=== PATIENT | male | born 1970 | race Caucasian/White ===

== ENCOUNTER 2024-09-15 00:47 | Inpatient (IN) | payer BC, OTHER ==
[2024-09-15] MEDS ORDERED: ONDANSETRON 4 MG/2 ML VIAL ONE (01:44)
[2024-09-15] MEDS ORDERED: NA CHLORIDE 0.9% 1,000 ML ONE ×3 (01:45→06:56)
[2024-09-15] MEDS ORDERED: FAMOTIDINE 20 MG/2 ML VIAL IV ONE (01:45)
[2024-09-15] MEDS ORDERED: MORPHINE 4 MG/ML SYR ONE (01:45)
[2024-09-15 01:59] LABS: Absolute Eosinophils 0.1 K/uL (0-0.5); Absolute Lymphocytes (CBC) 1.5 K/uL (0.7-4.9); Absolute Monocytes 1.4 K/uL (0.1-1.3); Absolute Neutrophil 14.1 K/uL (1.8-8.0); Basophils % 0.2 % (0-1.3); Eosinophils % 0.7 % (0-4.4); Hematocrit 41.3 % (39.6-49.0); Hemoglobin 13.8 g/dL (13.6-17.9); Lymphocytes % 8.9 % (15.3-44.8); MCH 30.1 pg (27.0-35.0); MCHC 33.4 g/dL (32.0-36.0); MCV 90.1 fL (80-100); MPV 9.7 fL (7.6-11.3); Monocytes % 8.4 % (3.3-12.3); Neutrophils % 81.8 % (41.7-73.7); Platelets 316 thou/uL (152-406); RBC Red Blood Cell Count 4.58 M/uL (4.33-5.43)
[2024-09-15 02:23] LABS: ALT/SGPT 69 U/L (16-61); AST/SGOT 50 U/L (15-37); Albumin 3.3 g/dL (3.4-5.0); Albumin/Globulin Ratio 0.8 (1.1-1.8); Alkaline Phosphatase 351 U/L (45-117); Anion Gap 9.8 mEq/L (5.0-15.0); BUN Blood Urea Nitrogen 15 mg/dL (7-18); Bicarbonate 25 mEq/L (21-32); Bilirubin Direct 0.6 mg/dL (0-0.2); Bilirubin Indirect, Calculated 0.8 mg/dL (0.2-0.8); Bilirubin Total 1.4 mg/dL (0.2-1.0); Globulin 4.3 g/dL (2.3-3.5); Glomerular Filtration Rate 78 ml/min (=/>90); Glucose Level 116 mg/dL (74-106); Magnesium 1.8 mg/dL (1.6-2.4); Potassium 3.8 mEq/L (3.5-5.1); Protein, Total 7.6 g/dL (6.4-8.2); Sodium Level 137 mEq/L (136-145); Troponin High Sensitivity 9.1 pg/mL (<58.9)
[2024-09-15 02:29] LABS: Lipase > 5000 U/L (13-75)
[2024-09-15 03:35] LABS: PT Prothrombin Time 11.7 SECONDS (9.4-12.5); PTT, Activated Partial Thromb 30.1 SECONDS (24.3-36.9); Protime INR 1.12
[2024-09-15] MEDS ORDERED: PIPERACIL/TAZO 4.5 GM VIAL IV ONE (03:35)
[2024-09-15] MEDS ORDERED: NA CHLORIDE 0.9% 100 ML ONE (03:36)
[2024-09-15 04:11] LABS: Specific Gravity 1.013 (1.005-1.030); Sqamous Epithelial None Seen /HPF (None Seen); Urine Bacteria None Seen /HPF (<20); Urine Bilirubin NEGATIVE (Negative); Urine Blood Negative (Negative); Urine Clarity Clear (Clear); Urine Color Light-Yellow (Yellow); Urine Culture Reflex Order NOT NEEDED; Urine Glucose NEGATIVE (Negative); Urine Ketones NEGATIVE (Negative); Urine Microscopic Reflex YN ORDER UMIC; Urine Nitrite NEGATIVE (Negative); Urine Protein NEGATIVE (Negative); Urine RBC <5 /HPF (None Seen); Urine Urobilinogen Normal (Normal); Urine WBC <5 /HPF (<5); Urine pH 5.5 (5.0-7.0)
--- NOTE | 2024-09-15 04:28 | RAD REPORT ---
EXAM: XR Chest, 1 View CLINICAL HISTORY: The patient is 54 years old and is Male; epigastric/upper abdomen pain TECHNIQUE: Frontal view of the chest. COMPARISON: No relevant prior studies available. FINDINGS: Lungs: Unremarkable. No consolidation. Pleural space: Unremarkable. No pneumothorax. Heart: Unremarkable. Mediastinum: Unremarkable. Normal mediastinal contour. Bones/joints: No acute findings. Upper abdomen: Gallbladder is surgically absent. * A single impression for all exams can be found at the end of this report EXAM: CT Abdomen and Pelvis With Intravenous Contrast CLINICAL HISTORY: The patient is 54 years old and is Male; epigastric/upper abdomen pain TECHNIQUE: Axial computed tomography images of the abdomen and pelvis with intravenous contrast. Sagittal and coronal reformatted images were created and reviewed. This CT exam was performed using one or more of the following dose reduction techniques: automated exposure control, adjustmen t of the mA and/or kV according to patient size, and/or use of iterative reconstruction technique. COMPARISON: No relevant prior studies available. FINDINGS: Lung bases: Unremarkable. No mass. No consolidation. ABDOMEN: Liver: Unremarkable. No mass. Gallbladder and bile ducts: Gallbladder is surgically absent. No ductal dilation. Pancreas: Peripancreatic stranding suggestive of acute pancreatitis. No ductal dilation. Spleen: Unremarkable. No splenomegaly. Adrenals: Unremarkable. No mass. Kidneys and ureters: Unremarkable. No solid mass. No hydronephrosis. Stomach and bowel: Unremarkable. No obstruction. No mucosal thickening. PELVIS: Appendix: No findings to suggest acute appendicitis. Bladder: Unremarkable. Reproductive: Unremarkable as visualized. ABDOMEN and PELVIS: Intraperitoneal space: Unremarkable. No free air. No significant fluid collection. Bones/joints: Disc space narrowing with degenerative endplate changes in the spine. No acute fracture. No dislocation. Soft tissues: Unremarkable. Vasculature: Unremarkable. No abdominal aortic aneurysm. Lymph nodes: Unremarkable. No enlarged lymph nodes. * A single impression for all exams can be found at the end of this report IMPRESSION: XR Chest, 1 View: No acute findings in the chest. CT Abdomen and Pelvis With Intravenous Contrast: Peripancreatic stranding suggestive of acute pancreatitis. Electronically signed by: Omer Vicente MD 09/15/2024 04:24 AM [facility] 8 Due to temporary technical issues with the PACS/[employer] reporting system, reports are being nael d by the in-house radiologist without review as a courtesy to ensure prompt reporting the interpreting radiologist is fully responsible for the content of the report. Transcribed Date/Time: 09/15/2024 4:27 AM
--- NOTE | 2024-09-15 04:35 | RAD REPORT ---
EXAM: XR Chest, 1 View CLINICAL HISTORY: The patient is 54 years old and is Male; epigastric/upper abdomen pain TECHNIQUE: Frontal view of the chest. COMPARISON: No relevant prior studies available. FINDINGS: Lungs: Unremarkable. No consolidation. Pleural space: Unremarkable. No pneumothorax. Heart: Unremarkable. Mediastinum: Unremarkable. Normal mediastinal contour. Bones/joints: No acute findings. Upper abdomen: Gallbladder is surgically absent. * A single impression for all exams can be found at the end of this report EXAM: CT Abdomen and Pelvis With Intravenous Contrast CLINICAL HISTORY: The patient is 54 years old and is Male; epigastric/upper abdomen pain TECHNIQUE: Axial computed tomography images of the abdomen and pelvis with intravenous contrast. Sagittal and coronal reformatted images were created and reviewed. This CT exam was performed using one or more of the following dose reduction techniques: automated exposure control, adjustmen t of the mA and/or kV according to patient size, and/or use of iterative reconstruction technique. COMPARISON: No relevant prior studies available. FINDINGS: Lung bases: Unremarkable. No mass. No consolidation. ABDOMEN: Liver: Unremarkable. No mass. Gallbladder and bile ducts: Gallbladder is surgically absent. No ductal dilation. Pancreas: Peripancreatic stranding suggestive of acute pancreatitis. No ductal dilation. Spleen: Unremarkable. No splenomegaly. Adrenals: Unremarkable. No mass. Kidneys and ureters: Unremarkable. No solid mass. No hydronephrosis. Stomach and bowel: Unremarkable. No obstruction. No mucosal thickening. PELVIS: Appendix: No findings to suggest acute appendicitis. Bladder: Unremarkable. Reproductive: Unremarkable as visualized. ABDOMEN and PELVIS: Intraperitoneal space: Unremarkable. No free air. No significant fluid collection. Bones/joints: Disc space narrowing with degenerative endplate changes in the spine. No acute fracture. No dislocation. Soft tissues: Unremarkable. Vasculature: Unremarkable. No abdominal aortic aneurysm. Lymph nodes: Unremarkable. No enlarged lymph nodes. * A single impression for all exams can be found at the end of this report IMPRESSION: XR Chest, 1 View: No acute findings in the chest. CT Abdomen and Pelvis With Intravenous Contrast: Peripancreatic stranding suggestive of acute pancreatitis. Electronically signed by: Omer Vicente MD 09/15/2024 04:[address] [facility] 8 Due to temporary technical issues with the [email or web address] reporting system, reports are being nael d by the in-house radiologist without review as a courtesy to ensure prompt reporting the interpreting radiologist is fully responsible for the content of the report. Transcribed Date/Time: 09/15/2024 4:35 AM
[2024-09-15] MEDS ORDERED: HYDROMORPHONE HCL 1 MG/ML INJ ONE (04:51)
--- NOTE | 2024-09-15 04:55 | EDPHYS ---
Physician Documentation [facility] Name: Carmine Muñiz III Age: 54 yrs Sex: Male : 1970 Arrival Date: 09/15/2024 Time: 00:47 Bed 18 Private MD: ED Physician Toño Titus HPI: 09/15 01:19 This 54 yrs old Male presents to ER via Unassigned with complaints of Abdominal Pain. cp 01:19 The patient presents with abdominal pain in the epigastric area, in the upper abdomen. cp Onset: The symptoms/episode began/occurred today, about 1700 after leaving work. The symptoms do not radiate. Associated signs and symptoms: Pertinent negatives: chest pain, constipation, diarrhea, dysuria, fever, shortness of breath, vomiting. The symptoms are described as waxing/waning, pressure. Severity of pain: in the emergency department the pain is actually worse moderately. Historical: - Allergies: 01:02 shrimp; ha1 - PMHx: 01:02 Hypertensive disorder; ha1 - PSHx: 01:02 Appendectomy; Cholecystectomy; ha1 - Immunization history:: Adult Immunizations up to date. - Infectious Disease History:: Denies. - Social history:: Smoking status: Patient denies any tobacco usage or history of. ROS: 01:20 Eyes: Negative for injury, pain, redness, and discharge, cp 01:20 Constitutional: Negative for body aches, chills, fever, poor PO intake, 01:20 ENT: Negative for drainage from ear(s), ear pain, sore throat, difficulty swallowing, difficulty handling secretions, :20 Cardiovascular: Negative for chest pain, edema, palpitations, 01:20 Respiratory: Negative for cough, shortness of breath, wheezing, 01:20 Abdomen/GI: Positive for abdominal pain, of the epigastric area and upper abdomen, Negative for vomiting, diarrhea, constipation, 01:20 Back: Negative for pain at rest, pain with movement, 01:20 : Negative for urinary symptoms, 01:20 Neuro: Negative for altered mental status, headache, weakness, 01:20 All other systems are negative, Exam: : ECG was reviewed by the Attending Physician. cp 01:25 Constitutional: The patient appears in no acute distress, alert, awake, cp non-diaphoretic, non-toxic, well developed, well nourished, obese, uncomfortable, 01:25 Head/Face: Normocephalic, atraumatic. cp 01:25 Eyes: Periorbital structures: appear normal, Pupils: equal, round, and reactive to light and accomodation, Extraocular movements: intact throughout, Conjunctiva: normal, no exudate, no injection, Sclera: no appreciated abnormality, Lids and lashes: appear normal, bilaterally, :25 ENT: External ear(s): are unremarkable, Nose: is normal, Mouth: Lips: moist, Oral mucosa: moist, Posterior pharynx: Airway: no evidence of obstruction, patent, :25 Chest/axilla: Inspection: normal, :25 Cardiovascular: Rate: normal, Rhythm: regular, Edema: is not appreciated, JVD: is not appreciated, :25 Respiratory: the patient does not display signs of respiratory distress, Respirations: labored breathing, is not present, intercostal retractions, are absent, shallow respirations, are not present, Breath sounds: are clear throughout, no decreased breath sounds, stridor, is not appreciated, wheezing: is not appreciated, :25 Abdomen/GI: Inspection: obese Bowel sounds: active, all quadrants, Palpation: soft, in all quadrants, moderate abdominal tenderness, in the epigastric area and right upper quadrant, rebound tenderness, is not appreciated, voluntary guarding, is elicited in the epigastric area and right upper quadrant, involuntary guarding, is not appreciated, :25 Back: CVA tenderness, is absent, :25 Neuro: Orientation: to person, place \T\ time. Mentation: is normal, Motor: moves all fours, strength is normal, Sensation: is normal, Vital Signs: 01:02 BP 149 / 78; Pulse 81; Resp 17 S; Temp 98.1(O); Pulse Ox 97% on R/A; Weight 129.27 kg; ha1 Height 6 ft. 2 in. ; 02:00 BP 123 / 77; Pulse 73; Resp 17; Pulse Ox 96% on R/A; dd2 02:30 BP 119 / 70; Pulse 67; Resp 16; Pulse Ox 95% ; dd2 05:07 BP 115 / 64; Pulse 65; Resp 18; Pulse Ox 95% ; cp4 11:09 BP 123 / 76; Pulse 70; Resp 18; Pulse Ox 100% ; kj2 01:02 Body Mass Index 36.59 (129.27 kg, 187.96 cm) ha1 [place] Coma Score: 01:20 Eye Response: spontaneous(4). Motor Response: obeys commands(6). Verbal Response: dd2 oriented(5). Total: 15. MDM: 01:03 Medical Screening Exam initiated 02:00 Differential diagnosis: gastritis, non-specific abd pain, pancreatitis, Peptic Ulcer cp Disease, Perf. Duodenal Ulcer, Perf. Gastric Ulcer, Ureterolithiasis, urinary tract infection, choledocholithiasis. 04:45 Data reviewed: vital signs, nurses notes, lab test result(s), EKG, radiologic studies, cp CT scan, plain films. 04:45 I considered the following discharge prescriptions or medication management in the emergency department Medications were administered in the Emergency Department. See MAR. Independent interpretation of the following test(s) in the Emergency Department EKG: See my EKG interpretation above. 04:50 Management of patient was discussed with the following: Hospitalist: DR Menard who will see patient in ED. 09/15 01:23 Order name: Basic Metabolic Panel; Complete Time: 02:30 09/15 02:31 Interpretation: Normal except: GLUC 116; GFR 78. 09/15 01:23 Order name: CBC with Diff; Complete Time: 02:01 09/15 02:01 Interpretation: Normal except: WBC 17.20; CHRISTOPHER% 81.8; LYM% 8.9; NEUT A 14.1; MNA 1.4. 09/15 01:23 Order name: LFT's; Complete Time: 02:30 09/15 02:31 Interpretation: Normal except: AST 50; ALT 69; ALK 351; BILIT 1.4; BILID 0.6; ALB 3.3; cp GLOB 4.3; A/G 0.8. 09/15 01:23 Order name: Magnesium; Complete Time: 02:30 09/15 02:31 Interpretation: Reviewed. 09/15 01:23 Order name: Troponin HS; Complete Time: 02:30 09/15 02:31 Interpretation: Reviewed. 09/15 01:23 Order name: Lipase; Complete Time: 02:30 09/15 02:31 Interpretation: Abnormal: LIP > 5000. 09/15 02:42 Order name: Blood Culture Adult (2) cp 09/15 02:42 Order name: Lactate w/ 2H reflex if indic.; Complete Time: 04:12 cp 09/15 02:42 Order name: Protime (+inr); Complete Time: 04:12 cp 09/15 02:42 Order name: Ptt, Activated; Complete Time: 04:12 cp 09/15 02:42 Order name: Urinalysis w/ reflexes; Complete Time: 04:12 cp 09/15 05:25 Order name: CBC with Automated Diff EDMS 09/15 05:25 Order name: CBC with Automated Diff EDMS 09/15 05:25 Order name: Comprehensive Metabolic Panel [facility] 09/15 05:25 Order name: Comprehensive Metabolic Panel [facility] 09/15 05:25 Order name: Lipase [facility]MI 09/15 05:25 Order name: Lipase [facility] 09/15 05:25 Order name: Lipase [facility] 09/15 01:23 Order name: XRAY Chest (1 view) 09/15 01:24 Order name: CT Abd/Pelvis - IV Contrast Only 09/15 05:25 Order name: Cholangiogram [facility] 09/15 01:23 Order name: EKG; Complete Time: 01:24 cp 09/15 01:23 Order name: Cardiac monitoring; Complete Time: 01: cp 09/15 01:23 Order name: EKG - Nurse/Tech; Complete Time: 01: cp 09/15 01:23 Order name: IV Saline Lock; Complete Time: 01:41 cp 09/15 01:23 Order name: Labs collected and sent; Complete Time: 01: cp 09/15 01:23 Order name: O2 Per Protocol; Complete Time: 01: cp 09/15 01:23 Order name: O2 Sat Monitoring; Complete Time: 01: cp 09/15 02:42 Order name: IV Saline Lock - Large Bore; Complete Time: 02:46 cp 09/15 02:42 Order name: Vital Signs; Complete Time: 02:46 cp EC:20 Rate is 78 beats/min. Rhythm is regular. KS interval is normal. QRS interval is normal. cp QT interval is normal. T waves are Inverted in lead aVR. Interpreted by me. Reviewed by me. Administered Medications: 01:55 Drug: Ondansetron IVP 4 mg IVP once; over 2 minutes Route: IVP; Site: right antecubital;dd2 02:10 Follow up: Response: No adverse reaction dd2 01:55 Drug: Famotidine IVP 20 mg IVP once; dilute with 10 mL 0.9% NaCl; give over 2 minutes dd2 Route: IVP; Site: right antecubital; 02:10 Follow up: Response: No adverse reaction dd2 01:55 Drug: morphine IVP or IV 4 mg IVP once over 4 mins Route: IVP; Infused Over: 4 mins; dd2 Site: right antecubital; 02:10 Follow up: Response: No adverse reaction dd2 01:55 Drug: NS 0.9% IV 1000 ml IV at 1000 ml once; to be given as a bolus over 60 minutes dd2 Route: IV; Rate: 1000 ml; Site: right antecubital; 02:10 Follow up: Response: No adverse reaction dd2 03:09 CANCELLED (Physician Discretion): piperacillin-tazobactam4.5 grams IVPB once over 60 cp mins; (mix in 100 mL NS) 03:42 Drug: NS 0.9% IV 1000 ml IV at 1000 ml once; to be given as a bolus over 60 minutes dd2 Route: IV; Rate: 1000 ml; Site: right antecubital; 04:47 Follow up: Response: No adverse reaction; IV Status: Completed infusion cp4 03:42 Drug: Piperacillin-Tazobactam IVPB 4.5 grams IVPB once over 60 mins; (mix in 100 mL NS) dd2 Route: IVPB; Infused Over: 60 mins; Site: right antecubital; 04:47 Follow up: Response: No adverse reaction; IV Status: Completed infusion cp4 04:58 Drug: HYDROmorphone IVP 1 mg IVP once Route: IVP; Site: right antecubital; cp4 11:08 Follow up: Response: No adverse reaction kj2 Disposition Summary: 09/15/24 04:55 Hospitalization Ordered Notes: Hospitalization Status: Inpatient Admission cp Provider: Joe Menard cp Location: Telemetry/MedSurg (Inpatient) cp Condition: Fair cp Problem: new cp Symptoms: have improved cp Bed/Room Type: Standard cp Room Assignment: 430(09/15/24 14:21) eb Diagnosis - Other acute pancreatitis without necrosis or infection cp Forms: - Medication Reconciliation Form cp - SBAR form cp - Leadership Thank You Letter cp Addendum: 09/18/2024 14:16 Co-signature as Attending Physician, Toño Titus MD I agree with the assessment and c bullock plan of care. Signatures: Dispatcher [employer] EDMS Toño Titus MD MD cha Page, Corey, PA PA cp Clark, Almaz eb Sridevi Ayon, RN RN ha1 Cecy Díaz cp4 RAMIRO PECK RN RN dd2 Stefanie Sal RN kj2 Corrections: (The following items were deleted from the chart) 09/15 01:24 01:24 BASIC METABOLIC PANEL+C.LAB.BRZ ordered. EDMS EDMS 01:24 01:24 CBC+H.LAB.BRZ ordered. EDMS EDMS 01:24 01:24 HEPATIC FUNCTION+C.LAB.BRZ ordered. EDMS EDMS 01:24 01:24 MAGNESIUM+C.LAB.BRZ ordered. EDMS EDMS 01:24 01:24 Troponin High Sensitivity+C.LAB.BRZ ordered. EDMS EDMS 01:24 01:24 LIPASE+C.LAB.BRZ ordered. EDMS EDMS 02:43 02:43 BLOOD CULTURE*+BA.LAB.BRZ ordered. EDMS EDMS 02:43 02:43 LACTATE+C.LAB.BRZ ordered. EDMS EDMS 02:43 02:43 PROTIME (+INR)+COAG.LAB.BRZ ordered. EDMS EDMS 02:43 02:43 PTT, ACTIVATED+COAG.LAB.BRZ ordered. EDMS EDMS 02:43 02:43 Urinalysis+U.LAB.BRZ ordered. EDMS EDMS 03:09 03:09 Piperacillin-Tazobactam IVPB 4.5 grams IVPB once over 60 mins; (mix in 100 mL NS) cp ordered. cp 03:30 02:42 Accucheck ordered. cp dd2 14:21 04:55 cp eb
--- NOTE | 2024-09-15 04:55 | ER ---
Nurse's Notes [facility] Name: Carmine Muñiz III Age: 54 yrs Sex: Male : 1970 Arrival Date: 09/15/2024 Time: 00:47 Bed 18 Private MD: Diagnosis: Other acute pancreatitis without necrosis or infection Presentation: 09/15 01:02 Chief complaint: Patient states: mid epigastric pain since this afternoon. ha1 01:02 Coronavirus screen: Client denies travel out of the [place] in the last 14 days. Ebola ha1 Screen: No symptoms or risks identified at this time. Initial Sepsis Screen: Does the patient meet any 2 criteria? No. Patient's initial sepsis screen is negative. Does the patient have a suspected source of infection? No. Patient's initial sepsis screen is negative. Risk Assessment: Do you want to hurt yourself or someone else? Patient reports no desire to harm self or others. Onset of symptoms was September 15, 2024. 01:02 Method Of Arrival: Ambulatory ha1 01:02 Acuity: LAVINIA 3 ha1 Triage Assessment: 01:02 General: Appears uncomfortable, Behavior is cooperative. Pain: Complains of pain in ha1 epigastric area Pain does not radiate. Pain currently is 8 out of 10 on a pain scale. Quality of pain is described as burning, pressure. Neuro: Level of Consciousness is awake, alert, obeys commands, Oriented to person, place, time, situation. Cardiovascular: Capillary refill < 3 seconds Patient's skin is warm and dry. Respiratory: Airway is patent Respiratory effort is even, unlabored, Respiratory pattern is regular, symmetrical. GI: Abdomen is round non-distended. : No signs and/or symptoms were reported regarding the genitourinary system. Derm: Skin is pink, warm \T\ dry. Musculoskeletal: Circulation, motion, and sensation intact. Range of motion: intact in all extremities. Historical: - Allergies: 01:02 shrimp; ha1 - PMHx: 01:02 Hypertensive disorder; ha1 - PSHx: 01:02 Appendectomy; Cholecystectomy; ha1 - Immunization history:: Adult Immunizations up to date. - Infectious Disease History:: Denies. - Social history:: Smoking status: Patient denies any tobacco usage or history of. Screenin: [facility] ED Fall Risk Assessment (Adult) History of falling in the last 3 months, dd2 including since admission No falls in past 3 months (0 pts) Confusion or Disorientation No (0 pts) Intoxicated or Sedated No (0 pts) Impaired Gait No (0 pts) Mobility Assist Device Used No (0 pt) Altered Elimination No (0 pt) Score/Fall Risk Level 0 - 2 = Low Risk Oriented to surroundings, Maintained a safe environment, Educated pt \T\ family on fall prevention, incl call for assistance when getting out of bed, Assessed \T\ reinforced patient's understanding of fall precautions, Hourly rounding (assess needs \T\ fall precautionary measures) done. Abuse screen: Denies threats or abuse. Nutritional screening: No deficits noted. Tuberculosis screening: No symptoms or risk factors identified. Assessment: :20 General: Appears in no apparent distress. uncomfortable, Behavior is calm, cooperative, dd2 appropriate for age. Pain: Complains of pain in epigastric area Pain currently is 8 out of 10 on a pain scale. Pain began 1700 09/14/2024. Neuro: No deficits noted. Pulido Agitation-Sedation Scale (RASS): 0 - Alert and Calm Level of Consciousness is awake, alert, obeys commands, Oriented to person, place, time, situation, Appropriate for age. Cardiovascular: Denies chest pain, Patient's skin is warm and dry. Rhythm is sinus rhythm. Respiratory: No deficits noted. Airway is patent Respiratory effort is even, unlabored, Respiratory pattern is regular, symmetrical. GI: Abdomen is non-distended, obese, Bowel sounds present X 4 quads. Abd is soft and non tender Reports epigastric pain. : No deficits noted. No signs and/or symptoms were reported regarding the genitourinary system. EENT: No deficits noted. No signs and/or symptoms were reported regarding the EENT system. Derm: No deficits noted. No signs and/or symptoms reported regarding the dermatologic system. Musculoskeletal: No deficits noted. No signs and/or symptoms reported regarding the musculoskeletal system. Circulation, motion, and sensation intact. Range of motion: intact in all extremities. 07:15 Reassessment: SEE [employer] FOR CONTINUED DOCUMENTATION. db Vital Signs: 01:02 BP 149 / 78; Pulse 81; Resp 17 S; Temp 98.1(O); Pulse Ox 97% on R/A; Weight 129.27 kg; ha1 Height 6 ft. 2 in. ; 02:00 BP 123 / 77; Pulse 73; Resp 17; Pulse Ox 96% on R/A; dd2 02:30 BP 119 / 70; Pulse 67; Resp 16; Pulse Ox 95% ; dd2 05:07 BP 115 / 64; Pulse 65; Resp 18; Pulse Ox 95% ; cp4 11:09 BP 123 / 76; Pulse 70; Resp 18; Pulse Ox 100% ; kj2 01:02 Body Mass Index 36.59 (129.27 kg, 187.96 cm) ha1 [place] Coma Score: 01:20 Eye Response: spontaneous(4). Motor Response: obeys commands(6). Verbal Response: dd2 oriented(5). Total: 15. ED Course: 00:49 Patient arrived in ED. jj6 00:52 Toño Camargo PA is PHCP. cp 00:53 Toño Titus MD is Attending Physician. cp 01:18 RAMIRO PECK, [place] is Primary Nurse. dd2 01:18 EKG done, by ED staff, reviewed by Toño PARISI. mm11 01:20 Inserted saline lock: 20 gauge in right antecubital area, using aseptic technique. dd2 Blood collected. Flushed with 10 mL NS. 01:20 No provider procedures requiring assistance completed. Patient maintains SpO2 dd2 saturation greater than 95% on room air. 01:20 Patient has correct armband on for positive identification. Bed in low position. Call dd2 light in reach. Side rails up X2. Client placed on continuous cardiac and pulse oximetry monitoring. NIBP monitoring applied. manager monitoring on. Door closed. Noise minimized. Warm blanket given. Pillow given. Verbal reassurance given. 01:22 Triage completed. ha1 01:41 XRAY Chest (1 view) Sent. dd2 01:54 XRAY Chest (1 view) In Process Unspecified. EDMS 02:50 CT Abd/Pelvis - IV Contrast Only In Process Unspecified. EDMS 04:54 Joe Menard MD is Hospitalizing Provider. cp 15:13 Patient admitted, IV remains in place. db 15:13 Provided Education on: ADMISSION. db Administered Medications: 01:55 Drug: Ondansetron IVP 4 mg IVP once; over 2 minutes Route: IVP; Site: right antecubital;dd2 02:10 Follow up: Response: No adverse reaction dd2 01:55 Drug: Famotidine IVP 20 mg IVP once; dilute with 10 mL 0.9% NaCl; give over 2 minutes dd2 Route: IVP; Site: right antecubital; 02:10 Follow up: Response: No adverse reaction dd2 01:55 Drug: morphine IVP or IV 4 mg IVP once over 4 mins Route: IVP; Infused Over: 4 mins; dd2 Site: right antecubital; 02:10 Follow up: Response: No adverse reaction dd2 01:55 Drug: NS 0.9% IV 1000 ml IV at 1000 ml once; to be given as a bolus over 60 minutes dd2 Route: IV; Rate: 1000 ml; Site: right antecubital; 02:10 Follow up: Response: No adverse reaction dd2 03:09 CANCELLED (Physician Discretion): piperacillin-tazobactam4.5 grams IVPB once over 60 cp mins; (mix in 100 mL NS) 03:42 Drug: NS 0.9% IV 1000 ml IV at 1000 ml once; to be given as a bolus over 60 minutes dd2 Route: IV; Rate: 1000 ml; Site: right antecubital; 04:47 Follow up: Response: No adverse reaction; IV Status: Completed infusion cp4 03:42 Drug: Piperacillin-Tazobactam IVPB 4.5 grams IVPB once over 60 mins; (mix in 100 mL NS) dd2 Route: IVPB; Infused Over: 60 mins; Site: right antecubital; 04:47 Follow up: Response: No adverse reaction; IV Status: Completed infusion cp4 04:58 Drug: HYDROmorphone IVP 1 mg IVP once Route: IVP; Site: right antecubital; cp4 11:08 Follow up: Response: No adverse reaction kj2 Medication: 01:20 VIS not applicable for this client. dd2 Outcome: 04:55 Decision to Hospitalize by Provider. cp 15:13 Admitted to Med/surg db 15:13 Condition: stable 15:13 Instructed on the need for admit, 15:14 Patient left the ED. db Signatures: Dispatcher [employer] EDAZ Toño Camargo PA PA cp Jeffries, Jennifer jj6 Sridevi Ayon RN RN ha1 Ami Irby, RN RN db Cecy Díaz cp4 Stefanie Sal RN RN kj2 RAMIRO PECK RN RN dd2 alon bauer mm11
[2024-09-15] MEDS ORDERED: ONDANSETRON 4 MG/2 ML VIAL IV PRN (05:20)
[2024-09-15] MEDS ORDERED: MORPHINE 4 MG/ML SYR IV PRN (05:20)
--- NOTE | 2024-09-15 05:25 | P.HP ---
Certification for Inpatient With expected LOS: >2 Midnights Practitioner: I am a practitioner with admitting privileges, knowledge of patient current condition, hospital course, and medical plan of care. Services: Services provided to patient in accordance with Admission requirements found in Title 42 Section 412.3 of the Code of Federal Regulations Patient History Date of Service: 09/15/24 Reason for admission: Acute pancreatitis History of Present Illness: Patient is 54 years of age started having acute epigastric pain started at 5 PM yesterday became progressively worse ended up here in the emergency room was diagnosed with acute pancreatitis patient has had his gallbladder removed apparently had a similar pain when they did an ERCP any nausea vomiting diarrhea denies alcohol abuse Allergies shrimp Allergy (Verified 09/15/24 05:26) Anaphylaxis - Past Medical/Surgical History -: Hypertension -: Autoimmune liver disease -: Appendicectomy -: Cholecystectomy - Social History Smoking Status: Never smoker Review of Systems 10-point ROS is otherwise unremarkable Physical Examination - Vital Signs Temperature: 97.4 F Blood Pressure: 124/71 Pulse: 85 Respirations: 14 Pulse Ox (%): 100 - Physical Exam General: Alert, In no apparent distress, Oriented x3 HEENT: Atraumatic Neck: Supple Respiratory: Clear to auscultation bilaterally Cardiovascular: No edema, Regular rate/rhythm Gastrointestinal: Normal bowel sounds, No tenderness, No masses, No rebound, Tenderness (Minimal epigastric tenderness no rebound) Musculoskeletal: No clubbing, No swelling - Studies Laboratory Data (last 24 hrs) 09/15/24 09/15/24 09/15/24 03:06 01:29 01:29 WBC 17.20 H Hgb 13.8 Hct 41.3 Plt Count 316 PT 11.7 INR 1.12 APTT 30.1 Sodium 137 Potassium 3.8 BUN 15 Creatinine 1.13 Glucose 116 H Magnesium 1.8 Total Bilirubin 1.4 H AST 50 H ALT 69 H Alkaline Phosphatase 351 H Lipase > 5000 H Assessment and Plan - Problems (Diagnosis) (1) Acute pancreatitis Current Visit: Yes Status: Acute Plan: Patient is 54 years of age admitted with acute pancreatitis postcholecystectomy autoimmune liver disease lipase level is over 5000 CT scan consistent with pancreatitis patient's white count is elevated abnormal LFTs CT scan reviewed labs reviewed admit n.p.o. IV fluids pain medication MRCP triglyceride level Qualifiers: Acute pancreatitis complication: unspecified - Advance Directives Does patient have a Living Will: No Does patient have a Durable POA for Healthcare: No
[2024-09-15 05:50] VITALS: BMI 36.6
[2024-09-15] MEDS: NA CHLORIDE 0.9% 1,000 ML IV SCH (05:51)
[2024-09-15] MEDS: FLU (Fluarix Triv) TS24-25(6MOS UP)/PF 45 MCG/0.5 ML Syringe IM ONE (08:15)
--- NOTE | 2024-09-15 18:46 | P.PN ---
Date of Service: 09/15/24 Patient seen and examined. He reports his abdominal pain is better He has had no nausea or vomited. He reports history of autoimmune liver disease, specifically sclerosing cholangitis. Autoimmune acute pancreatitis highly possible. Plan: Supportive measures with IV hydration. Clear liquid diet Serial abdominal examination Serial lipase Triglyceride level is pending.
[2024-09-16 07:27] LABS: Absolute Eosinophils 0.4 K/uL (0-0.5); Absolute Lymphocytes (CBC) 2.2 K/uL (0.7-4.9); Absolute Neutrophil 6.4 K/uL (1.8-8.0); Basophils % 0.4 % (0-1.3); Eosinophils % 3.7 % (0-4.4); Hematocrit 37.7 % (39.6-49.0); Hemoglobin 13.2 g/dL (13.6-17.9); Lymphocytes % 21.7 % (15.3-44.8); MCH 31.6 pg (27.0-35.0); MCHC 35.1 g/dL (32.0-36.0); MCV 90.3 fL (80-100); MPV 9.6 fL (7.6-11.3); Monocytes % 10.4 % (3.3-12.3); Neutrophils % 63.8 % (41.7-73.7); Nucleated Red Blood Cells % 0.1 % (0-0); Platelets 237 thou/uL (152-406); RBC Red Blood Cell Count 4.18 M/uL (4.33-5.43); Red Cell Distribution Width 13.8 % (12.1-15.2)
[2024-09-16 07:51] LABS: Albumin 3.1 g/dL (3.4-5.0); Albumin/Globulin Ratio 0.8 (1.1-1.8); Anion Gap 8.4 mEq/L (5.0-15.0); Bilirubin Total 1.5 mg/dL (0.2-1.0); Globulin 3.9 g/dL (2.3-3.5); Potassium 4.4 mEq/L (3.5-5.1)
[2024-09-16] MEDS: VALSARTAN 160 MG TAB PO SCH (15:50)
--- NOTE | 2024-09-16 18:23 | P.PN ---
Subjective Date of Service: 09/16/24 Chief Complaint: Acute pancreatitis Patient states he feels much better today. He states that his abdominal pain is much better. He denies any nausea. No vomiting. No recorded fever. Physical Examination - Vital Signs Temperature: 98.3 F Blood Pressure: 127/63 Pulse: 65 Respirations: 20 Pulse Ox (%): 97 - Studies Microbiology Data (last 24 hrs): 09/15/24 04:35 Blood - Blood Anaerobic Blood Culture - Final 09/15/24 03:06 Blood - Blood Anaerobic Blood Culture - Final Assessment And Plan - Plan Physical examination General: Alert and oriented x3, NAD, HEENT: Anicteric sclera Neck: Supple, no elevated JVD Heart: Heart sounds 1 and 2 normal, regular rhythm, normal rate, no pedal edema Lungs: Clear to auscultation bilaterally, adequate breath sounds bilaterally, no rhonchi or crackles. Abdomen: Soft, nondistended, nontender, normal bowel sounds. Extremities: No tenderness, no deformity Skin: Normal skin turgor, no rash, no nodules or ulcers. Neuro: No focal motor deficit. Normal speech. Psychiatry: Normal mood, no agitation. Diagnosis Acute pancreatitis History of autoimmune hepatitis Patient stated he has been diagnosed with sclerosing cholangitis. He has no gallbladder and denies alcohol intake. 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 Lipase level significantly improved from yesterday. Patient's symptoms improved. Leukocytosis likely stress related-resolved. Overall he is responding to supportive measures with IV hydration and clear liquid diet. Continue to monitor lipase level. Analgesics as needed. Autoimmune hepatitis Primary sclerosing cholangitis Patient follows with fitter hand Chan Christensen. Patient has elevated ALP and mildly elevated bilirubin. AST/ALT are within normal limits. He is not on any bile sequestrant medication. Follow-up as outpatient. Chronic pain syndrome Hold NSAIDs given risk factors for acute pancreatitis. Essential hypertension Continue home dose losartan. DVT prophylaxis: Lovenox Advanced directive: Full code
[2024-09-16 22:16] VITALS: O2SAT 96
[2024-09-17 06:56] LABS: Albumin 2.9 g/dL (3.4-5.0); Albumin/Globulin Ratio 0.8 (1.1-1.8); Anion Gap 9.2 mEq/L (5.0-15.0); Globulin 3.7 g/dL (2.3-3.5); Potassium 4.2 mEq/L (3.5-5.1); Protein, Total 6.6 g/dL (6.4-8.2)
[2024-09-17 09:05] VITALS: TEMP 97.9
[2024-09-17 12:37] VITALS: BP 119/79
--- NOTE | 2024-09-17 14:19 | P.DS ---
Admission Date: 09/15/24 Discharge Date: 09/17/24 Disposition: ROUTINE DISCHARGE Discharge Condition: FAIR Reason for Admission: Acute pancreatitis Brief History of Present Illness: Patient is 54 years of age started having acute epigastric pain started at 5 PM yesterday became progressively worse ended up here in the emergency room was diagnosed with acute pancreatitis patient has had his gallbladder removed apparently had a similar pain when they did an ERCP any nausea vomiting diarrhea denies alcohol abuse Hospital Course: Patient admitted to the medical floor and the following medical problems addr essed Acute pancreatitis History of autoimmune hepatitis Patient stated he has been diagnosed with sclerosing cholangitis. He has no gallbladder and denies alcohol intake. 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 Lipase level significantly improved from yesterday. Patient's symptoms improved. Leukocytosis likely stress related-resolved. Overall he is responded well to supportive measures with IV hydration and clear liquid diet. Lipase level improved significantly and almost resolved. Patient tolerated diet advancement. He is deemed stable for discharge. Autoimmune hepatitis Primary sclerosing cholangitis Patient follows with training development specialist Chan Christensen. Patient has elevated ALP and mildly elevated bilirubin. AST/ALT are within normal limits. He is not on any bile sequestrant medication. Follow-up as outpatient. Chronic pain syndrome Hold NSAIDs given risk factors for acute pancreatitis. Essential hypertension Continued home dose losartan. Vital Signs/Physical Exam: Temp Pulse Resp BP Pulse Ox 97.9 F 60 18 119/79 97 09/17/24 12:00 09/17/24 12:00 09/17/24 12:00 09/17/24 12:00 09/17/24 12:00 General: Alert, In no apparent distress, Oriented x3 HEENT: Mucous membr. moist/pink Neck: Supple, JVD not distended Respiratory: Clear to auscultation bilaterally, Normal air movement Cardiovascular: No edema, Regular rate/rhythm, Normal S1 S2 Gastrointestinal: Normal bowel sounds, Soft and benign, Non-distended, No tenderness Musculoskeletal: No swelling, No tenderness Integumentary: No rashes, No cyanosis Neurological: Normal strength at 5/5 x4 extr Laboratory Data at Discharge: WBC 10.00 thou/uL (4.3-10.9) 09/16/24 07:02 Hgb 13.2 g/dL (13.6-17.9) L 09/16/24 07:02 Hct 37.7 % (39.6-49.0) L 09/16/24 07:02 Plt Count 237 thou/uL (152-406) 09/16/24 07:02 PT 11.7 SECONDS (9.4-12.5) 09/15/24 03:06 INR 1.12 09/15/24 03:06 APTT 30.1 SECONDS (24.3-36.9) 09/15/24 03:06 Sodium 140 mEq/L (136-145) 09/17/24 06:02 Potassium 4.2 mEq/L (3.5-5.1) 09/17/24 06:02 BUN 12 mg/dL (7-18) 09/17/24 06:02 Creatinine 0.95 mg/dL (0.70-1.30) 09/17/24 06:02 Glucose 93 mg/dL (74-106) 09/17/24 06:02 Magnesium 1.8 mg/dL (1.6-2.4) 09/15/24 01:29 Total Bilirubin 1.0 mg/dL (0.2-1.0) 09/17/24 06:02 AST 26 U/L (15-37) 09/17/24 06:02 ALT 43 U/L (16-61) 09/17/24 06:02 Alkaline Phosphatase 275 U/L (45-117) H 09/17/24 06:02 Triglycerides 78 mg/dL (<150) 09/16/24 07:02 Lipase 390 U/L (13-75) H 09/17/24 06:02 Home Medications: Mv/Fe/FA/Om3/FSH/Lycop/Lut/Jenny [Multia Daily Multivitamin] 1 cap PO DAILY 09/15/24 Valsartan [Diovan] 160 mg PO DAILY 09/15/24 Diet: AHA Activity: Ad yashira Followup: Tara Kaur MD [Primary Care Provider] - 1-2 Weeks Time spent managing pt's care (in minutes): 33
--- NOTE | 2024-09-19 12:44 | EKG ---
Test Date: 2024-09-15 Test Time: 01:14:55 Copywriting Intern: ASAF MEASUREMENT RESULTS: Intervals: Rate: 78 GA: 150 QRSD: 86 QT: 366 QTc: 417 Ideal: P: 15 GA: 150 QRS: 15 T: 50 INTERPRETIVE STATEMENTS: Normal sinus rhythm Normal ECG Compared to ECG 10/21/2010 06:57:24 Sinus bradycardia no longer present Electronically Signed On 09-19-24 12:36:36 HOSPITAL RECEPTIONIST by Kvng Aleman
== END 2024-09-17 15:03 | disposition home or self-care (01) | DRG 439 ==
LOC: ER 00:47 → ERHOLD 05:20 → 4TH 15:02
PROVIDERS: ADMIT Internal Medicine; ATTEND Internal Medicine
DX: K85.90 Acute pancreatitis without necrosis or infection, unspecified (principal); K83.09 Other cholangitis; I10 Essential (primary) hypertension; G89.4 Chronic pain syndrome; K75.4 Autoimmune hepatitis; Z90.49 Acquired absence of other specified parts of digestive tract; Z91.013 Allergy to seafood
CPT/HCPCS: 36415; 71045; 74177; 80048; 80053; 80076; 81001; 83605; 83690; 83735; 84478; 84484; 85025; 85610; 85730; 87040; 93005; 96365; 96375; 99285; J1171; J2405; J7030; Q9967